=== PATIENT | male | born 1995 | race Caucasian/White ===

== ENCOUNTER 2016-07-05 09:26 | Emergency (ER) | payer BC, OTHER ==
--- NOTE | 2016-07-05 09:39 | EDM.PDOC ---
ED HISTORY OF PRESENT ILLNESS - General Chief Complaint: Respiratory Problem Stated Complaint: SHORTNESS OF BREATH Time Seen by Provider: 07/05/16 09:32 - History of Present Illness INITIAL COMMENTS - FREE TEXT/NARRATIVE: HISTORY AND PHYSICAL: History of present illness: The patient is a 20-year-old male with a history of asthma and frequent bronchitis who presents with a two-day history of cough which was initially dry and then productive of grayish phlegm with occasional blood streaks. He has had no chest pain but has felt short of breath and some pain with the coughing. He has had some posttussive emesis but is able to tolerate fluids and has had no diarrhea or abdominal pain. He is to return yesterday which has since improved and he has had no nasal congestion or headache. Patient states with his asthma he uses an inhaler only as needed and he does not have one currently Patient did not get his influenza shot this year Review of systems: As per history of present illness and below otherwise all systems reviewed and negative. Past medical history: As per history of present illness and as reviewed below otherwise noncontributory. Surgical history: As per history of present illness and as reviewed below otherwise noncontributory. Social history: No reported history of drug or alcohol abuse. Family history: As per history of present illness and as reviewed below otherwise noncontributory. Physical exam: General: Well-developed well-nourished male who is nontoxic and vital signs of a notify me HEENT: Atraumatic, normocephalic, pupils reactive, negative for conjunctival pallor or scleral icterus, mucous membranes moist, throat clear of exudates but there is some posterior oropharyngeal erythema, no cervical adenopathy or nuchal rigidity,, neck supple, nontender, trachea midline. Lungs: Clear to auscultation, breath sounds equal bilaterally, chest nontender. No work or breathing wheezing or stridor Heart: S1S2, regular rhythm and slightly tachycardic rate of my evaluation. Abdomen: Soft, nondistended, nontender. Negative for masses or hepatosplenomegaly. NABS Skin: Normal turgor no overt rashes or lesions are seen grossly Genitourinary: Deferred. Rectal: Deferred. Extremities: Atraumatic, negative for cords or calf pain. Neurovascular unremarkable. Neuro: Awake, alert, oriented. Motor and sensory unremarkable throughout. Exam nonfocal. Diagnostics: Rapid strep influenza swab Therapeutics: Spacer teaching Parent and patient are aware of testing results and I will give Augmentin for home as well as an albuterol refill with a spacer. Impression: Strep pharyngitis and bronchitis Definitive disposition and diagnosis as appropriate pending reevaluation and review of above. - Related Data Allergies/ADRs: Allergies Allergy/AdvReac Type Severity Reaction Status Date / Time No Known Allergies Allergy Verified 07/05/16 09:29 Home Meds: Home Meds Sertraline [Zoloft] 1 tab PO DAILY 07/05/16 [History] Past Medical History HEENT History: Reports: None Cardiovascular History: Reports: Heart murmur Respiratory History: Reports: None Gastrointestinal History: Reports: None Genitourinary History: Reports: None Musculoskeletal History: Reports: None Psychiatric History: Reports: ADHD, Depression Endocrine/Metabolic History: Reports: None Dermatologic History: Reports: None - Infectious Disease History Infectious Disease History: Reports: None - Past Surgical History HEENT Surgical History: Reports: None GI Surgical History: Reports: None Social & Family History - Tobacco Use Smoking Status *Q: Never Smoker Second Hand Smoke Exposure: No ED ROS GENERAL - Review of Systems Review Of Systems: ROS reveals no pertinent complaints other than HPI. ED EXAM, GENERAL - Physical Exam Exam: See Below (See dictation) Course - Vital Signs Last Recorded V/S: Last Vital Signs Temp 36.6 C 07/05/16 09:30 Pulse 115 H 07/05/16 09:30 Resp 16 07/05/16 09:30 BP 146/74 H 07/05/16 09:30 Pulse Ox 98 07/05/16 09:30 - Orders/Labs/Meds Orders: Active Orders 24 hr Category Date Time Status Communication Order [RC] STAT Care 07/05/16 10:19 Ordered Departure - Departure Time of Disposition: 10:20 Disposition: Home, Self-Care 01 Condition: good Clinical Impression: Strep pharyngitis, Bronchitis Forms: ED Department Discharge Additional Instructions: The following information is given to patients seen in the emergency department who are being discharged to home. This information is to outline your options for follow-up care. We provide all patients seen in our emergency department with a follow-up referral. The need for follow-up, as well as the timing and circumstances, are variable depending upon the specifics of your emergency department visit. If you don't have a primary care physician on staff, we will provide you with a referral. We always advise you to contact your personal physician following an emergency department visit to inform them of the circumstance of the visit and for follow-up with them and/or the need for any referrals to a consulting specialist. The emergency department will also refer you to a specialist when appropriate. This referral assures that you have the opportunity for followup care with a specialist. All of these measure are taken in an effort to provide you with optimal care, which includes your followup. Under all circumstances we always encourage you to contact your private physician who remains a resource for coordinating your care. When calling for followup care, please make the office aware that this follow-up is from your recent emergency room visit. If for any reason you are refused follow-up, please contact the [facility] emergency department at and ask to speak to the emergency department charge nurse. [facility] Primary care- Internal Medicine [place] [address] Please take antibiotics until they're finished and use [id number] Tylenol/ ibuprofen for pain and fevers. He can use [id number] cough medicine as you choose and please push hydration. Call and followup with primary care next week and return here as needed and as discussed. Use albuterol inhaler as needed - My Orders Last 24 Hours: My Active Orders 07/05/16 10:19 Communication Order [RC] STAT - Assessment/Plan Last 24 Hours: My Active Orders 07/05/16 10:19 Communication Order [RC] STAT
[2016-07-05 10:38] VITALS: BP 126/60
== END 2016-07-05 10:37 | disposition home or self-care (01) ==
LOC: MW.ED 09:26
DX: J02.0 Streptococcal pharyngitis (principal); J40 Bronchitis, not specified as acute or chronic; F32.9 Major depressive disorder, single episode, unspecified; Z79.899 Other long term (current) drug therapy
CPT/HCPCS: 87804; 87880; 99283

== ENCOUNTER 2019-02-21 16:46 | Emergency (ER) | payer OTHER ==
[2019-02-21] MEDS ORDERED: Sodium Chloride 0.9% 1,000 ML IV ONE (17:10)
[2019-02-21] MEDS ORDERED: Sodium Chloride 0.9% 10 ML Syringe FLUSH PRN (17:10)
[2019-02-21] MEDS ORDERED: Sodium Chloride 0.9% 2.5 ML Syringe FLUSH PRN (17:10)
--- NOTE | 2019-02-21 17:14 | EDM.PDOC ---
ED HPI GENERAL MEDICAL PROBLEM - General Chief Complaint: Syncope Stated Complaint: FAINTING Time Seen by Provider: 02/21/19 17:10 Source of Information: Reports: Patient History Limitations: Reports: No Limitations - History of Present Illness INITIAL COMMENTS - FREE TEXT/NARRATIVE: History of present illness: []Patient had 4 wisdom teeth extracted as morning under anesthesia took longer than normal and has had several episodes of syncope today. He was at a gas station and passed out, awoke on the floor. He denies any headache, vomiting, neck pain or any other complaints other than his mouth is sore. Review of systems: As per history of present illness and below otherwise all systems reviewed and negative. Past medical history: As per history of present illness and as reviewed below otherwise noncontributory. Surgical history: As per history of present illness and as reviewed below otherwise noncontributory. Social history: No reported history of drug or alcohol abuse. Family history: As per history of present illness and as reviewed below otherwise noncontributory. Physical exam: General: Well developed, well nourished in NAD HEENT: Atraumatic, normocephalic, pupils reactive, negative for conjunctival pallor or scleral icterus, mucous membranes moist, throat clear, neck supple, nontender, trachea midline. Lungs: Clear to auscultation, breath sounds equal bilaterally, chest nontender. Heart: S1S2, regular, negative for clicks, rubs, or JVD. Abdomen: NABS, Soft, nondistended, nontender. Negative for masses or hepatosplenomegaly. Negative for costovertebral tenderness. Pelvis: Stable nontender. Genitourinary: Deferred. Rectal: Deferred. Extremities: Atraumatic, negative for cords or calf pain. Neurovascular unremarkable. Neuro: Awake, alert, oriented. Cranial nerves II through XII unremarkable. Cerebellum unremarkable. Motor and sensory unremarkable throughout. Exam nonfocal. Skin:warm and dry Diagnostics: none Therapeutics: IV hydrated ED Course: stable Impression: syncope post anesthesia Prescriptions: none Plan: Take meds as directed, follow up with your primary care physician, return to ER if symptoms worsen or change. Definitive disposition and diagnosis as appropriate pending reevaluation and review of above. Mouth Pain Score (Numeric/FACES): 6 - Related Data Allergies Allergy/AdvReac Type Severity Reaction Status Date / Time No Known Allergies Allergy Verified 02/21/19 17:00 Home Meds: Home Meds ARIPiprazole [Abilify] 2 mg PO DAILY 02/21/19 [History] ClonazePAM [KlonoPIN] 1 mg PO DAILY 02/21/19 [History] Desvenlafaxine Succinate [Desvenlafaxine Succinate ER] 100 mg PO DAILY 02/21/19 [History] Dexmethylphenidate HCl 10 mg PO DAILY 02/21/19 [History] Levomefolate Calcium [l-Methylfolate] 15 mg PO DAILY 02/21/19 [History] Varenicline Tartrate [Chantix] 1 tab PO DAILY 02/21/19 [History] lamoTRIgine 25 mg PO DAILY 02/21/19 [History] Past Medical History HEENT History: Reports: None Cardiovascular History: Reports: Heart Murmur Respiratory History: Reports: None Gastrointestinal History: Reports: None Genitourinary History: Reports: None Musculoskeletal History: Reports: None Neurological History: Reports: None Psychiatric History: Reports: ADHD, Anxiety, Depression Endocrine/Metabolic History: Reports: None Hematologic History: Reports: None Immunologic History: Reports: None Oncologic (Cancer) History: Reports: None Dermatologic History: Reports: None - Infectious Disease History Infectious Disease History: Reports: Chicken Pox - Past Surgical History Head Surgeries/Procedures: Reports: None HEENT Surgical History: Reports: Oral Surgery Cardiovascular Surgical History: Reports: None Respiratory Surgical History: Reports: None GI Surgical History: Reports: None Male Surgical History: Reports: None Endocrine Surgical History: Reports: None Neurological Surgical History: Reports: None Musculoskeletal Surgical History: Reports: None Oncologic Surgical History: Reports: None Dermatological Surgical History: Reports: None Social & Family History - Family History Family Medical History: Noncontributory - Tobacco Use Smoking Status *Q: Never Smoker Second Hand Smoke Exposure: No - Caffeine Use Caffeine Use: Reports: Energy Drinks - Recreational Drug Use Recreational Drug Use: No ED ROS GENERAL - Review of Systems Review Of Systems: See Below - Physical Exam Exam: See Below Course - Vital Signs Last Recorded V/S: Last Vital Signs Temp 97.9 F 02/21/19 17:01 Pulse 74 02/21/19 17:01 Resp 18 02/21/19 17:01 BP 122/56 L 02/21/19 17:01 Pulse Ox 98 02/21/19 17:01 Orthostatic Blood Pressure [ 108/56 Standing] Orthostatic Blood Pressure [ 103/46 Sitting] Orthostatic Blood Pressure [ 106/47 Supine] - Orders/Labs/Meds Orders: Active Orders 24 hr Category Date Time Status Sodium Chloride 0.9% [Saline Flush] Med 02/21/19 17:10 Active 10 ml FLUSH ASDIRECTED PRN Sodium Chloride 0.9% [Saline Flush] Med 02/21/19 17:10 Active 2.5 ml FLUSH ASDIRECTED PRN Saline Lock Insert [OM.PC] Stat Oth 02/21/19 17:10 Ordered Medication Orders Sodium Chloride (Saline Flush) 10 ml FLUSH ASDIRECTED PRN PRN Reason: Keep Vein Open Sodium Chloride (Saline Flush) 2.5 ml FLUSH ASDIRECTED PRN PRN Reason: Keep Vein Open Meds: Medications Generic Name Dose Route Start Last Admin Trade Name Freq PRN Reason Stop Dose Admin Sodium Chloride 10 ml 02/21/19 17:10 Saline Flush FLUSH ASDIRECTED PRN Keep Vein Open Sodium Chloride 2.5 ml 02/21/19 17:10 Saline Flush FLUSH ASDIRECTED PRN Keep Vein Open Discontinued Medications Generic Name Dose Route Start Last Admin Trade Name Freq PRN Reason Stop Dose Admin Sodium Chloride 1,000 mls @ 999 mls/hr 02/21/19 17:10 02/21/19 17:38 Normal Saline IV 02/21/19 18:10 999 mls/hr .Bolus ONE Administration Departure - Departure Time of Disposition: 18:22 Disposition: Home, Self-Care 01 Condition: Good Clinical Impression: Syncope Qualifiers: Encounter type: initial encounter - Discharge Information *PRESCRIPTION DRUG MONITORING PROGRAM REVIEWED*: Not Applicable *COPY OF PRESCRIPTION DRUG MONITORING REPORT IN PATIENT ALEX: Not Applicable Referrals: Dangelo Phan MD [Primary Care Provider] - Forms: ED Department Discharge Additional Instructions: The following information is given to patients seen in the emergency department who are being discharged to home. This information is to outline your options for follow-up care. We provide all patients seen in our emergency department with a follow-up referral. The need for follow-up, as well as the timing and circumstances, are variable depending upon the specifics of your emergency department visit. If you don't have a primary care physician on staff, we will provide you with a referral. We always advise you to contact your personal physician following an emergency department visit to inform them of the circumstance of the visit and for follow-up with them and/or the need for any referrals to a consulting specialist. The emergency department will also refer you to a specialist when appropriate. This referral assures that you have the opportunity for follow-up care with a specialist. All of these measure are taken in an effort to provide you with optimal care, which includes your follow-up. Under all circumstances we always encourage you to contact your private physician who remains a resource for coordinating your care. When calling for follow-up care, please make the office aware that this follow-up is from your recent emergency room visit. If for any reason you are refused follow-up, please contact the [facility] Emergency Department at and asked to speak to the emergency department charge nurse. Take meds as directed, follow up with your primary care physician, return to ER if symptoms worsen or change. [facility] [address] [place] [id number] - My Orders Last 24 Hours: My Active Orders 02/21/19 17:10 Sodium Chloride 0.9% [Saline Flush] 10 ml FLUSH ASDIRECTED PRN Sodium Chloride 0.9% [Saline Flush] 2.5 ml FLUSH ASDIRECTED PRN Saline Lock Insert [OM.PC] Stat - Assessment/Plan Last 24 Hours: My Active Orders 02/21/19 17:10 Sodium Chloride 0.9% [Saline Flush] 10 ml FLUSH ASDIRECTED PRN Sodium Chloride 0.9% [Saline Flush] 2.5 ml FLUSH ASDIRECTED PRN Saline Lock Insert [OM.PC] Stat
[2019-02-21 18:37] VITALS: BP 102/48; PULSE 70
== END 2019-02-21 18:37 | disposition home or self-care (01) ==
LOC: MW.ED 16:46
DX: T88.59XA Other complications of anesthesia, initial encounter (principal); R55 Syncope and collapse; T41.45XA Adverse effect of unspecified anesthetic, initial encounter; F32.9 Major depressive disorder, single episode, unspecified; F90.9 Attention-deficit hyperactivity disorder, unspecified type; Z79.899 Other long term (current) drug therapy; Y92.524 Gas station as the place of occurrence of the external cause
CPT/HCPCS: 96360; 99283; J7040; 99282

== ENCOUNTER 2021-05-26 16:08 | Emergency (ER) | payer BC, OTHER ==
[2021-05-26 19:26] LABS: CORONAVIRUS COVID-19 NAA NEGATIVE (NEGATIVE); INFLUENZA A NAA NEGATIVE (NEGATIVE); INFLUENZA B NAA NEGATIVE (NEGATIVE)
[2021-05-26 20:00] VITALS: BP 124/66; PULSE 90
== END 2021-05-26 20:00 | disposition home or self-care (01) ==
LOC: MW.ED 16:08
DX: J40 Bronchitis, not specified as acute or chronic (principal); B34.9 Viral infection, unspecified; Z20.822 Contact with and (suspected) exposure to COVID-19; Z79.899 Other long term (current) drug therapy
CPT/HCPCS: 0240U; 71045; 99283

== ENCOUNTER 2021-06-25 19:10 | Inpatient (IN) | payer BC, OTHER ==
[2021-06-25] MEDS ORDERED: Sodium Chloride 0.9% 1,000 ML IV ONE ×3 (19:20→23:06)
[2021-06-25] MEDS ORDERED: Ketorolac 30 MG/ML SDV IVPUSH ONE (19:30)
[2021-06-25 21:06] LABS: BLOOD UREA NITROGEN,BUN 14 mg/dL (7.0-18.0); CHLORIDE,CL 102 mmol/L (98-107); ESTIMATED GFR > 60.0 ml/min; GLUCOSE RANDOM 100 mg/dL (74-106); POTASSIUM,K 3.4 mmol/L (3.5-5.1); SODIUM,NA 141 mmol/L (136-148)
[2021-06-25] MEDS ORDERED: Sodium Bicarbonate 150 MEQ in Dextrose 5% in Water 1,000 ML IV ONE ×2 (21:28)
[2021-06-25] MEDS ORDERED: Albuterol/Ipratropium 3.0-0.5 MG/3 ML Neb Soln NEB PRN (23:44)
[2021-06-25] MEDS ORDERED: Acetaminophen 325 MG Tab PO PRN (23:44)
[2021-06-25] MEDS ORDERED: Potassium Chloride 20 MEQ Tab.ER PO ONE (23:46)
[2021-06-26] MEDS ORDERED: Acetaminophen/HYDROcodone 325-5 MG Tab PO ONE (00:22)
[2021-06-26] MEDS ORDERED: Calcium Carbonate 500 MG Tab.Chew PO PRN (04:05)
[2021-06-26] MEDS: Lactated Ringers 1,000 ML IV SCH ×4 (06:20→22:35)
[2021-06-26 07:16] LABS: BLOOD UREA NITROGEN,BUN 11 mg/dL (7.0-18.0); CARBON DIOXIDE,CO2 28.8 mmol/L (21.0-32.0); CHLORIDE,CL 105 mmol/L (98-107); ESTIMATED GFR > 60.0 ml/min; GLUCOSE RANDOM 87 mg/dL (74-106); POTASSIUM,K 3.6 mmol/L (3.5-5.1); SODIUM,NA 141 mmol/L (136-148)
[2021-06-26] MEDS ORDERED: oxyCODONE 5 MG Tab PO PRN (10:00)
[2021-06-26] MEDS ORDERED: lamoTRIgine 100 MG Tab PO SCH (10:00)
[2021-06-26] MEDS: ARIPiprazole 10 MG Tab PO SCH (10:23)
[2021-06-26] MEDS: lamoTRIgine 100 MG Tab PO SCH ×2 (10:24→21:04)
[2021-06-26] MEDS: DESVENLAFAXINE 100 MG PO SCH (10:26)
[2021-06-26] MEDS: oxyCODONE 5 MG Tab PO PRN ×2 (14:57→19:43)
[2021-06-26] MEDS: ALPRAZolam 0.5 MG Tab PO PRN (21:04)
[2021-06-27] MEDS: Lactated Ringers 1,000 ML IV SCH ×4 (03:44→20:16)
[2021-06-27] MEDS: oxyCODONE 5 MG Tab PO PRN ×4 (06:00→20:13)
[2021-06-27 07:20] LABS: BLOOD UREA NITROGEN,BUN 6 mg/dL (7.0-18.0); CARBON DIOXIDE,CO2 31.2 mmol/L (21.0-32.0); CHLORIDE,CL 108 mmol/L (98-107); ESTIMATED GFR > 60.0 ml/min; GLUCOSE RANDOM 81 mg/dL (74-106); POTASSIUM,K 4.4 mmol/L (3.5-5.1); SODIUM,NA 145 mmol/L (136-148)
[2021-06-27] MEDS ORDERED: Lactated Ringers 1,000 ML IV ONE (08:07)
[2021-06-27] MEDS: ARIPiprazole 10 MG Tab PO SCH (08:17)
[2021-06-27] MEDS: lamoTRIgine 100 MG Tab PO SCH ×2 (08:20→20:12)
[2021-06-27] MEDS: DESVENLAFAXINE 100 MG PO SCH ×2 (08:22→09:23)
[2021-06-27] MEDS ORDERED: Modafinil 100 MG Tab PO SCH (09:45)
[2021-06-27 13:06] LABS: C.TRACHOMATIS BY TMA Negative (Negative); N.GONORRHOEAE BY TMA Negative (Negative)
[2021-06-27] MEDS: ALPRAZolam 0.5 MG Tab PO PRN (20:14)
[2021-06-28] MEDS: Lactated Ringers 1,000 ML IV SCH ×4 (02:01→22:46)
[2021-06-28] MEDS: oxyCODONE 5 MG Tab PO PRN ×4 (04:11→22:10)
[2021-06-28 06:14] LABS: BLOOD UREA NITROGEN,BUN 9 mg/dL (7.0-18.0); CARBON DIOXIDE,CO2 30.7 mmol/L (21.0-32.0); CHLORIDE,CL 105 mmol/L (98-107); ESTIMATED GFR > 60.0 ml/min; GLUCOSE RANDOM 83 mg/dL (74-106); POTASSIUM,K 4.2 mmol/L (3.5-5.1); SODIUM,NA 142 mmol/L (136-148)
[2021-06-28] MEDS: Modafinil 200 MG Tab PO SCH ×3 (07:12→12:27)
[2021-06-28] MEDS: DESVENLAFAXINE 100 MG PO SCH (09:02)
[2021-06-28] MEDS: ARIPiprazole 10 MG Tab PO SCH (09:03)
[2021-06-28] MEDS: lamoTRIgine 100 MG Tab PO SCH ×2 (09:04→20:04)
[2021-06-28] MEDS ORDERED: Acetaminophen 500 MG Tab PO ONE (13:49)
[2021-06-28] MEDS: ALPRAZolam 0.5 MG Tab PO PRN ×2 (18:15→22:54)
[2021-06-29] MEDS: oxyCODONE 5 MG Tab PO PRN (04:42)
[2021-06-29] MEDS: Lactated Ringers 1,000 ML IV SCH ×3 (04:44→20:00)
[2021-06-29 07:11] LABS: BLOOD UREA NITROGEN,BUN 10 mg/dL (7.0-18.0); CHLORIDE,CL 104 mmol/L (98-107); ESTIMATED GFR > 60.0 ml/min; GLUCOSE RANDOM 88 mg/dL (74-106); POTASSIUM,K 3.7 mmol/L (3.5-5.1); SODIUM,NA 141 mmol/L (136-148)
[2021-06-29] MEDS: Modafinil 200 MG Tab PO SCH ×2 (07:40→13:21)
[2021-06-29] MEDS: lamoTRIgine 100 MG Tab PO SCH ×2 (08:43→20:18)
[2021-06-29] MEDS: ARIPiprazole 10 MG Tab PO SCH (08:44)
[2021-06-29] MEDS: DESVENLAFAXINE 100 MG PO SCH (08:45)
[2021-06-29] MEDS: Ibuprofen 200 MG Tab PO PRN ×2 (15:48→19:52)
[2021-06-29] MEDS: ALPRAZolam 0.5 MG Tab PO PRN (20:19)
[2021-06-29] MEDS ORDERED: Ketorolac 30 MG/ML SDV IVPUSH ONE (22:37)
[2021-06-29] MEDS ORDERED: ALPRAZolam 0.5 MG Tab PO ONE (22:38)
[2021-06-30] MEDS: Lactated Ringers 1,000 ML IV SCH ×4 (01:27→16:30)
[2021-06-30 06:09] LABS: BLOOD UREA NITROGEN,BUN 10 mg/dL (7.0-18.0); CARBON DIOXIDE,CO2 30.3 mmol/L (21.0-32.0); CHLORIDE,CL 105 mmol/L (98-107); ESTIMATED GFR > 60.0 ml/min; GLUCOSE RANDOM 89 mg/dL (74-106); POTASSIUM,K 3.9 mmol/L (3.5-5.1); SODIUM,NA 143 mmol/L (136-148)
[2021-06-30] MEDS: Modafinil 200 MG Tab PO SCH ×4 (06:33→14:39)
[2021-06-30] MEDS: lamoTRIgine 100 MG Tab PO SCH ×2 (08:24→20:30)
[2021-06-30] MEDS: ARIPiprazole 10 MG Tab PO SCH (08:26)
[2021-06-30] MEDS: Ibuprofen 200 MG Tab PO PRN (08:28)
[2021-06-30] MEDS: DESVENLAFAXINE 100 MG PO SCH (08:28)
[2021-06-30] MEDS ORDERED: Acetaminophen 500 MG Tab PO PRN (09:11)
[2021-06-30] MEDS: Ondansetron 4 MG/2 ML SDV IVPUSH PRN ×2 (12:45→22:42)
[2021-06-30] MEDS: Ketorolac 10 MG Tab PO PRN ×2 (17:03→23:03)
[2021-06-30] MEDS: ALPRAZolam 0.5 MG Tab PO PRN (21:15)
[2021-06-30] MEDS: Nicotine 14 MG/24 Hr Patch TRDERM SCH (22:43)
[2021-07-01] MEDS: Modafinil 200 MG Tab PO SCH ×3 (06:09→12:59)
[2021-07-01 06:51] LABS: BLOOD UREA NITROGEN,BUN 9 mg/dL (7.0-18.0); CARBON DIOXIDE,CO2 28.6 mmol/L (21.0-32.0); CHLORIDE,CL 107 mmol/L (98-107); ESTIMATED GFR > 60.0 ml/min; GLUCOSE RANDOM 91 mg/dL (74-106); POTASSIUM,K 3.8 mmol/L (3.5-5.1); SODIUM,NA 142 mmol/L (136-148)
[2021-07-01] MEDS: ARIPiprazole 10 MG Tab PO SCH (09:31)
[2021-07-01] MEDS: lamoTRIgine 100 MG Tab PO SCH ×2 (09:32→20:48)
[2021-07-01] MEDS: DESVENLAFAXINE 100 MG PO SCH (09:33)
[2021-07-01] MEDS: Nicotine 14 MG/24 Hr Patch TRDERM SCH (09:33)
[2021-07-01] MEDS ORDERED: Lactated Ringers 1,000 ML IV ONE (11:25)
[2021-07-01] MEDS: Ketorolac 30 MG/ML SDV IVPUSH PRN ×3 (12:59→23:36)
[2021-07-01] MEDS: Lactated Ringers 1,000 ML IV SCH (14:12)
[2021-07-01] MEDS: ALPRAZolam 0.5 MG Tab PO PRN ×2 (18:54→23:38)
[2021-07-02] MEDS: Lactated Ringers 1,000 ML IV SCH (00:20)
[2021-07-02 07:34] LABS: BLOOD UREA NITROGEN,BUN 6 mg/dL (7.0-18.0); CARBON DIOXIDE,CO2 27.9 mmol/L (21.0-32.0); CHLORIDE,CL 107 mmol/L (98-107); ESTIMATED GFR > 60.0 ml/min; GLUCOSE RANDOM 86 mg/dL (74-106); POTASSIUM,K 3.8 mmol/L (3.5-5.1); SODIUM,NA 141 mmol/L (136-148)
[2021-07-02] MEDS: ARIPiprazole 10 MG Tab PO SCH (08:33)
[2021-07-02] MEDS: lamoTRIgine 100 MG Tab PO SCH (08:34)
[2021-07-02] MEDS: Modafinil 200 MG Tab PO SCH (08:35)
[2021-07-02] MEDS: DESVENLAFAXINE 100 MG PO SCH (08:36)
[2021-07-02] MEDS: Nicotine 14 MG/24 Hr Patch TRDERM SCH (08:37)
[2021-07-02] MEDS: Ketorolac 30 MG/ML SDV IVPUSH PRN (08:40)
[2021-07-02 08:49] VITALS: BP 125/61; PULSE 86
== END 2021-07-02 12:40 | disposition home or self-care (01) | DRG 351 ==
LOC: MW.ED 19:10 → MW.MS 21:44 → OBSVTOIN 06-27 08:45 → MW.MS 06-27 11:30
PROVIDERS: ADMIT Student in an Organized Health Care Education/Training Program; ATTEND Student in an Organized Health Care Education/Training Program
DX: M62.82 Rhabdomyolysis (principal); N17.9 Acute kidney failure, unspecified; R74.01 Elevation of levels of liver transaminase levels; F31.9 Bipolar disorder, unspecified; F41.9 Anxiety disorder, unspecified; Z79.899 Other long term (current) drug therapy; J45.909 Unspecified asthma, uncomplicated; F90.9 Attention-deficit hyperactivity disorder, unspecified type; Z86.19 Personal history of other infectious and parasitic diseases; Z20.822 Contact with and (suspected) exposure to COVID-19
CPT/HCPCS: 36415; 74176; 74176-26; 76705; 76705-26; 80048; 80053; 80074; 80143; 81001; 82550; 85025; 87086; 87491; 87591; 96365; 96366; 96375; 99219; 99231; 99232; 99238; 99284-25; 99285; A9270-GY; G0378; J1885; J2405; J7030; J7120; U0002

== ENCOUNTER 2021-07-03 22:58 | Emergency (ER) | payer BC ==
[2021-07-04 00:56] LABS: BLOOD UREA NITROGEN,BUN 11 mg/dL (7.0-18.0); CARBON DIOXIDE,CO2 30.8 mmol/L (21.0-32.0); CHLORIDE,CL 103 mmol/L (98-107); GLUCOSE RANDOM 98 mg/dL (74-106); SODIUM,NA 142 mmol/L (136-148)
[2021-07-04 01:15] VITALS: BP 128/74; PULSE 75
== END 2021-07-04 01:14 | disposition home or self-care (01) ==
LOC: MW.ED 22:58
DX: M54.16 Radiculopathy, lumbar region (principal); Z79.899 Other long term (current) drug therapy
CPT/HCPCS: 36415; 80048; 82550; 85025; 99283

== ENCOUNTER 2021-08-30 06:52 | Emergency (ER) | payer BC ==
[2021-08-30] MEDS ORDERED: Sodium Chloride 0.9% 10 ML Syringe FLUSH PRN (07:19)
[2021-08-30] MEDS ORDERED: Sodium Chloride 0.9% 2.5 ML Syringe FLUSH PRN (07:19)
[2021-08-30] MEDS ORDERED: Sodium Chloride 0.9% 1,000 ML IV ONE (07:19)
[2021-08-30 08:02] LABS: BLOOD UREA NITROGEN,BUN 9 mg/dL (7.0-18.0); CARBON DIOXIDE,CO2 26.6 mmol/L (21.0-32.0); CHLORIDE,CL 104 mmol/L (98-107); GLUCOSE RANDOM 105 mg/dL (74-106); POTASSIUM,K 3.8 mmol/L (3.5-5.1); SODIUM,NA 141 mmol/L (136-148)
[2021-08-30 09:06] VITALS: BP 121/59; PULSE 65
== END 2021-08-30 09:07 | disposition home or self-care (01) ==
LOC: MW.ED 06:52
DX: M62.82 Rhabdomyolysis (principal); R10.9 Unspecified abdominal pain; R82.998 Other abnormal findings in urine; J45.909 Unspecified asthma, uncomplicated; Z79.899 Other long term (current) drug therapy
CPT/HCPCS: 36415; 74176; 80053; 81003; 82550; 85025; 99284; J3490; J7030

== ENCOUNTER 2022-04-17 01:56 | Emergency (ER) | payer BC ==
[2022-04-17 02:07] VITALS: BP 133/77; PULSE 81
[2022-04-17] MEDS ORDERED: Ondansetron 4 MG Tab.DIS PO ONE (02:25)
[2022-04-17] MEDS ORDERED: fentaNYL 50 MCG/ML SDV IVPUSH ONE (02:25)
[2022-04-17] MEDS ORDERED: Ibuprofen 600 MG Tab PO ONE (02:26)
== END 2022-04-17 03:15 | disposition home or self-care (01) ==
LOC: MW.ED 01:56
DX: S82.62XA Displaced fracture of lateral malleolus of left fibula, initial encounter for closed fracture (principal); J45.909 Unspecified asthma, uncomplicated; Z79.899 Other long term (current) drug therapy; X50.1XXA Overexertion from prolonged static or awkward postures, initial encounter
CPT/HCPCS: 73610; 96374; 99283; A9270; J3010